=== PATIENT | female | born 1965 | race Two or more races ===

== ENCOUNTER 2021-10-24 10:04 | Emergency (ER) | payer BC ==
[~2021-10-24] VITALS: Ht 153.7 cm; Wt 72.6 kg
[~2021-10-24 10:04] MED LIST: [UNRECOGNIZED DRUG - REMARK]
[2021-10-24 10:17] VITALS: BP 140/72
[2021-10-24] MEDS ORDERED: FAMOTIDINE 20 MG/2 ML VIAL IVP ONE (10:45)
[2021-10-24] MEDS ORDERED: ONDANSETRON 4 MG/2 ML VIAL IVP ONE (10:45)
[2021-10-24] MEDS ORDERED: NACL 0.9% 1,000 ML IV ONE (10:45)
[2021-10-24] MEDS ORDERED: ACETAMINOPHEN EXTRA STRENGTH 500 MG TAB PO ONE (10:45)
[2021-10-24 11:17] LABS: BASOPHILS % (AUTO) 0.2 % (0.0-2.0); HEMATOCRIT 44.6 % (36-48); HEMOGLOBIN 15.1 g/dL (12.0-16.0); LYMPHOCYTES # (AUTO) 0.6 K/uL (2.5-16.5); LYMPHOCYTES % (AUTO) 9.2 % (20.5-51.1); MEAN CORPUSCULAR HEMOGLOBIN 31 pg (27-31); MEAN CORPUSCULAR HGB CONC 34 g/dL (33-37); MEAN CORPUSCULAR VOLUME 92.8 fL (80-94); MONOCYTES # (AUTO) 0.6 K/uL (0.8-1.0); MONOCYTES % (AUTO) 8.6 % (1.7-9.3); NEUTROPHILS # (AUTO) 5.8 K/uL (1.8-7.7); PLATELET COUNT (AUTO) 141 K/uL (140-450); RED BLOOD CELL COUNT(AUTO) 4.81 MIL/uL (4.20-5.40); RED CELL DISTRIBUTION WIDTH 13.9 % (11.6-13.7); WHITE BLOOD COUNT (AUTO) 7.1 K/uL (4.8-10.8)
[2021-10-24 13:59] LABS: ALBUMIN 4.7 g/dL (3.4-5.0); ANION GAP 17.7 (8-16); CARBON DIOXIDE 24.8 mmol/L (21-32); CREATININE 0.8 mg/dL (0.6-1.3); POTASSIUM 3.5 mmol/L (3.5-5.1); TOTAL BILIRUBIN 0.9 mg/dL (0.0-1.0)
[2021-10-24 14:34] VITALS: BP 135/77
== END 2021-10-24 14:34 | disposition home or self-care (01) ==
LOC: MED 10:04
DX: B34.9 Viral infection, unspecified (principal); Z20.822 Contact with and (suspected) exposure to COVID-19; R51.9 Headache, unspecified; R11.10 Vomiting, unspecified; R19.7 Diarrhea, unspecified; Z90.49 Acquired absence of other specified parts of digestive tract; Z98.890 Other specified postprocedural states
CPT/HCPCS: 36415; 71045; 80053; 83690; 84484; 85025; 87086; 87426; 87804; 93005; 96361; 96374; 96375; 99285; J2405; J3490; U0003; J7030